=== PATIENT | female | born 1975 | race Caucasian/White ===

== ENCOUNTER 2019-03-15 10:35 | Outpatient (CLI) | payer BC, SELFPAY ==
[2019-03-15 13:35] LABS: ALT 28 U/L (12-78); AST 19 U/L (15-37); Albumin 3.6 g/dL (3.4-5.0); Alkaline Phosphatase 72 U/L (46-116); Anion Gap 10.2 mmol/L (3-11); BUN 12 mg/dL (7-18); Bilirubin, Total 0.4 mg/dL (0.2-1.0); CO2 26.8 mmol/L (21.0-32.0); CREATININE 0.89 mg/dL (0.55-1.02); Calcium 9.4 mg/dL (8.5-10.1); Chloride 101 mmol/L (98-107); Cholesterol 205 mg/dL (50-200); GGT 82 U/L (5-55); Glucose 105 mg/dL (70-100); HDL Cholesterol 58 mg/dL (40-60); LDL CHOLESTEROL 112 mg/dL (<100); Potassium 4.2 mmol/L (3.5-5.1); Sodium 138 mmol/L (136-145); Total Protein 6.9 g/dL (6.4-8.2); Triglyceride 201 mg/dL (30-150)
== END 2019-03-15 10:55 ==
PROVIDERS: PCP Family Medicine; Visit Provider Family Medicine
DX: Z00.00 Encounter for general adult medical examination without abnormal findings (principal); F41.0 Panic disorder [episodic paroxysmal anxiety]; Z13.220 Encounter for screening for lipoid disorders
CPT/HCPCS: 36415; 80053; 80061; 83721; 82977

== ENCOUNTER 2021-04-02 10:04 | Outpatient (REF) | payer BC, SELFPAY ==
--- NOTE | 2021-04-02 08:45 | PAPFT_PTH ---
PATIENT: Margarita Mcclure LOC: [facility] U#:[id number] AGE/SX: 45/F ROOM: RE04/02/[address]: Carmen Ferrer MD, DC : 1975 BED: DIS: 04/02/2021 SPEC #: [id number] RECD: 04/02/21 12:35 STATUS: OLGA LIDIA REFlavia #: [id number] RADHA: 04/02/21 08:[address]: Carmen Ferrer DEPT: [facility] Cytology RECD BY: Amarilis Saul Tissues: 1 - CX/ENDOCX FOR PAP SMEARS Procedures: PAP THIN PREP/UVM Screening HPV DNA PROBE Comments: [id number]
== END 2021-04-02 10:05 | disposition home or self-care (01) ==
LOC: LBN 10:04
PROVIDERS: PCP Family Medicine; Visit Provider Family Medicine
DX: Z12.4 Encounter for screening for malignant neoplasm of cervix (principal); Z11.51 Encounter for screening for human papillomavirus (HPV)
CPT/HCPCS: 88142; 87624

== ENCOUNTER 2021-10-03 00:53 | Outpatient (CLI) | payer BC, SELFPAY ==
--- NOTE | 2021-10-03 08:00 | ETT_ITS ---
APPROVED REPORT Exam: Exercise Treadmill Patient Location: Out-Patient Room/Bed: Stress Nurse: Mishel Fairbanks RN Ordering Provider:JAHAIRA CHOWDHURY, Contact Number: [phone] BMI: 25.95 Baseline Rhythm: Sinus Rhythm Comment: Minimal diffuse ST depressions Indications: SOB, hypertension, smoker Medical History Medical History: SOB, seborrheic keratuses, hypertension, anxiety, depression, smoker (current) Cardiac Medications: Amlodipine, metoprolol succinate, hydrochlorothiazide, venlafaxine Allergies: Metronidazole Cardiac Risk Factors: Hypertension, smoker (current) Previous Cardiac Procedures: None Pretest Chest Pain Characteristics: None Exercise History: Sedentary Physical Disabilities: None Lung Sounds: Clear to auscultation Heart Sounds: Regular Stress Test Details Test: Exercise stress testing was performed using a Brian protocol. Rest Stress HR Resting HR Supine: 85 bpm Max Heart Rate (APMHR): 173 bpm Resting HR Standin bpm Target HR (85% APMHR): 147 bpm Max HR Achieved: 176 bpm % of APMHR: 101 Recovery HR: 103 bpm HR response to stress: Normal HR response to stress Comment: Metoprolol succinate held for 48 hrs BP Resting BP Supine: 162/90 mmHg Resting BP Standin/90 mmHg Max BP: 190/92 mmHg Recovery BP: 168/88 mmHg BP response to stress: Normal blood pressure response to stress. ECG Resting ECG: Sinus Rhythm Ectopy: None Comment: Minimal diffuse ST depressions Stress ECG: Sinus Tachycardia ST Change: Horizontal ST depression, Downsloping ST depression Lead(s): II, III, aVF, V5, V6 Stage: [address] Deviation: 1.5 mm Arrhythmia: None Recovery ECG: Sinus Rhythm Recovery ST Change: Horizontal ST depression, Downsloping ST depression Lead(s): II, III, aVF, V5, V6 Recovery ST Deviation: 1 mm Recovery Arrhythmia: None Comment: ST depressions returning back to baseline of diffuse ST depressions Clinical Reason for Termination: Fatigue, Dyspnea Stress Symptoms: General Fatigue, Dyspnea, Chest pain (in recovery) Exercise duration: 9 min32 sec Highest Stage Reached: Stage 4: 4.2 mph at 16% grade. Exercise capacity: 11.03 METs Moreno Treadmill Score: 9.2 Rate Pressure Product: [id number] Stress ECG Conclusion 1. Resting electrocardiogram showed minor diffuse nondiagnostic ST abnormalities 2. Patient exercised on the Brian protocol and completed a workload of 11.03 METS 3. Normal heart rate and blood pressure response to exercise. The patient achieved greater than 100% of predicted heart rate for age 4. At peak exercise there was J-point depression with upsloping ST segments. In recovery the patient developed diffusely downsloping ST segments which lasted through minute 14 of recovery 5. There were no significant dysrhythmia 6. Electrocardiographically the test was equivocal due to resting ST-T abnormalities. Suggest repeat with imaging if clinically appropriate Moreno Treadmill Score is 9.2 which is Low risk. Stress Test Summary STAGE Time (mins) Speed (mph) Grade (%) HR BP SYMPTOMS METS Supine 85 162/90 Standing 94 162/90 BAILEY 2/10, SpO2 98% 1 3 1.7 10 128 174/92 Mild SOB, SpO2 97% 4.6 2 6 2.5 12 152 178/92 Moderate SOB, SpO2 97% 7 3 9 3.4 14 169 186/94 SpO2 97% 10.2 1 min recovery 169 188/94 Mild SOB, SpO2 98% 3 min recovery 128 190/92 BAILEY 4/10, SpO2 98% 6 min recovery 111 178/90 L Chest pain 2/10, SpO2 98% 9 min recovery 107 168/88 Symptoms improving, SpO2 97% 12 min recovery 104 Symptoms resolved, SpO2 97% 15 min recovery 103 SpO2 98%
== END 2021-10-03 01:13 ==
PROVIDERS: PCP Family Medicine; Visit Provider Family Medicine
DX: F17.200 Nicotine dependence, unspecified, uncomplicated (principal); I10 Essential (primary) hypertension; R06.02 Shortness of breath
CPT/HCPCS: 93017

== ENCOUNTER 2021-10-15 01:13 | Outpatient (CLI) | payer BC, SELFPAY ==
--- NOTE | 2021-10-15 07:30 | DI.NM_ITS ---
APPROVED REPORT Exam: Exercise Treadmill Patient Location: Out-Patient Room/Bed: Stress Nurse: Sara Newton RN Ordering Provider:JAHAIRA CHOWDHURY, Contact Number: [phone] BMI: 25.33 Baseline Rhythm: Sinus Rhythm Comment: diffuse ST depressions at baseline Indications: ABNORMAL STRESS ETT. Medical History Medical History: Anxiety, Depression, Smoker, HTN, Abnormal stress ECG w/ treadmill Cardiac Medications: Metoprolol succinate, Hydrochlorothiazide, Amlodipine Allergies: Metronidazole Cardiac Risk Factors: HTN, Smoking (current) Previous Cardiac Procedures: None Pretest Chest Pain Characteristics: No chest pain Exercise History: Sedentary Physical Disabilities: None Lung Sounds: Clear to auscultation Heart Sounds: Regular Stress Test Details Test: Exercise stress testing was performed using a Brian protocol. Nuclear Acquisition: Rest Tc-99m/Stress Tc-99m 1 day Rest Isotope: Tc-99m Sestamibi. Dose: 10.5 Date: 10/15/2021 Injection Time: 0930 Stress Isotope: Tc-99m Sestamibi. Dose: 32.0 Date: 10/15/2021 Injection Time: 1120 HR Resting HR Supine: 76 bpm Max Heart Rate (APMHR): 173.462426 bpm Resting HR Standin bpm Target HR (85% APMHR): 147.989564 bpm Max HR Achieved: 169 bpm % of APMHR: 97.69 Recovery HR: 102 bpm HR response to stress: Normal HR response to stress Comment: Prolonged recovery period d/t elevated HRs. Metoprolol succinate held for 48hrs prior to jose manuel t. BP Resting BP Supine: 152/90 mmHg Resting BP Standin/88 mmHg Max BP: 192/88 mmHg Recovery BP: 124/82 mmHg BP response to stress: Normal blood pressure response to stress. ECG Resting ECG: Sinus Rhythm Ectopy: None Stress ECG: Sinus Tachycardia ST Change: Horizontal/downsloping ST depressions Lead(s): inferior leads Stage: [address] Deviation: 2 mm Arrhythmia: rare PVC Recovery ECG: Sinus Tachycardia Recovery ST Change: Horizontal/downsloping ST depression Lead(s): inferior leads, V4, V5, V6 Recovery ST Deviation: 1 mm Recovery Arrhythmia: None Clinical Reason for Termination: Fatigue Stress Symptoms: General Fatigue, Dyspnea Exercise duration: 09 min42 sec Highest Stage Reached: Stage 4: 4.2 mph at 16% grade. Exercise capacity: 11.32 METs Moreno Treadmill Score: 9 Rate Pressure Product: [id number] Stress ECG Conclusion 1. Resting electrocardiogram showed left ventricular hypertrophy with mild diffuse ST depression 2. The patient exercised on the Brian protocol and completed a workload of 11.32 METS, stopping due t o fatigue and shortness of breath 3. Normal heart rate and blood pressure response to exercise. The patient achieved 97% of predicted heart rate for age 4. Electrocardiographically the test was equivocal for myocardial ischemia due to resting ST-T abnorm alities 5. There were no dysrhythmias Moreno Treadmill Score is 9 which is Low risk. Stress Test Summary STAGE Time (mins) Speed (mph) Grade (%) HR BP SYMPTOMS METS Supine 76 152/90 Standing 88 152/88 1 3 1.7 10 114 158/84 4.6 2 6 2.5 12 138 164/86 7 3 9 3.4 14 160 190/92 10.2 1 min recovery 162 192/88 3 min recovery 125 182/86 6 min recovery 111 144/76 9 min recovery 105 138/78 12 min recovery 104 130/82 15 min recovery 102 12/82 Patient does not endorse chest pain during exercise or in recovery period. MPI Conclusion Normal myocardial perfusion without evidence of ischemia or prior infarction EF is 77%, normal wall motion Radiologist Interpretation Radiologist Interpretation by: Andi Resendez MD Interpretation Date/Time: 10/15/2021 15:49:55
== END 2021-10-15 01:33 ==
PROVIDERS: PCP Family Medicine; Visit Provider Family Medicine
DX: R94.39 Abnormal result of other cardiovascular function study (principal); R94.31 Abnormal electrocardiogram [ECG] [EKG]; I10 Essential (primary) hypertension; F17.210 Nicotine dependence, cigarettes, uncomplicated
CPT/HCPCS: 78452; 93017

== ENCOUNTER 2021-11-14 12:39 | Outpatient (CLI) | payer BC, SELFPAY ==
--- NOTE | 2021-11-14 12:30 | RT.EKG_ITS ---
APPROVED REPORT Exam: Resting ECG Reason for Exam: abnormal test Patient Location: O HR:74 bpm ECG Measurements Heart Rate 74 AXIS NE 174 P 60 QRSd 84 QRS 45 QT 388 T -39 QTc 431 Conclusion Sinus rhythm...normal P axis, V-rate 50- 99 Ventricular premature complex...V complex w/ short R-R interval Diffuse nondiagnostic ST-T abnormalities
== END 2021-11-14 12:40 | disposition home or self-care (01) ==
LOC: DI.CARD 12:40
PROVIDERS: PCP Family Medicine; Visit Provider Internal Medicine Cardiovascular Disease
DX: R94.39 Abnormal result of other cardiovascular function study (principal)
CPT/HCPCS: 93010

== ENCOUNTER 2022-05-16 02:40 | Outpatient (CLI) | payer BC, SELFPAY ==
[2022-05-16 13:07] LABS: ALT 34 U/L (14-59); AST 20 U/L (15-37); Albumin 3.9 g/dL (3.4-5.0); Alkaline Phosphatase 76 U/L (46-116); Anion Gap 8.7 mmol/L (3-11); BUN 16 mg/dL (7-18); Bilirubin, Total 0.5 mg/dL (0.2-1.0); CO2 28.3 mmol/L (21.0-32.0); CREATININE 0.9 mg/dL (0.55-1.02); Calcium 9.1 mg/dL (8.5-10.1); Chloride 99 mmol/L (98-107); Glucose 115 mg/dL (74-106); Potassium 3.5 mmol/L (3.5-5.1); Sodium 136 mmol/L (136-145); Total Protein 7.3 g/dL (6.4-8.2)
== END 2022-05-16 02:41 | disposition home or self-care (01) ==
LOC: LOS 02:40
PROVIDERS: PCP Family Medicine; Visit Provider Family Medicine
DX: Z00.00 Encounter for general adult medical examination without abnormal findings (principal); I10 Essential (primary) hypertension
CPT/HCPCS: 36415; 80053

== ENCOUNTER 2023-03-12 09:55 | Outpatient (REF) | payer BC, SELFPAY ==
--- NOTE | 2023-03-12 08:30 | ENDOMET_PTH ---
PATIENT: Margarita Mcclure LOC: [facility] U#:[id number] AGE/SX: 47/F ROOM: RE03/12/[address]: Lory Skinner DO : 1975 BED: DIS: 03/12/2023 SPEC #: [id number] RECD: 03/12/23 12:34 STATUS: OLGA LIDIA REQ #: [id number] RADHA: 03/12/23 08:[address]: Lory Skinner DEPT: Surgical Specimen RECD BY: Radha Covington ENTERED: 03/12/23 12:35 SP TYPE: Endomet OTHR DR: Carmen Ferrer MD, DC Tissues: 1 - ENDOMETRIUM BX/CHRISTINA Procedures: GROSS AND MICRO LEVEL 4 Comments: [id number]
== END 2023-03-12 09:56 | disposition home or self-care (01) ==
LOC: LBN 09:55
PROVIDERS: PCP Family Medicine; Visit Provider Obstetrics & Gynecology
DX: N95.0 Postmenopausal bleeding (principal)
CPT/HCPCS: 88305

== ENCOUNTER 2023-06-23 03:52 | Outpatient (CLI) | payer BC, SELFPAY ==
[2023-06-23 11:41] LABS: Abs Immature Grans 0.01 10^3/uL (0.0-0.06); Absolute Eosinophil Count 0.17 10^3/uL (0.0-0.7); Absolute Lymphocyte Count 3.05 10^3/uL (1.2-3.4); Absolute Monocyte Count 0.39 10^3/uL (0.1-0.8); Absolute Neutrophil Count 4.87 10^3/uL (1.2-6.7); Basophils % 1.2; HGB 14.4 g/dL (11.2-15.7); Immature Grans % 0.1; Lymphocytes % 35.5; MCH 30.7 pg (27.0-33.0); MCHC 34.3 % (32.0-36.0); MCV 90 fL (80-95); MPV 9.5 fL (8.0-11.0); Monocytes % 4.5; Neutrophils % 56.7; Platelet Count 313 10^3/uL (130-400); RBC 4.69 10^6/uL (3.93-5.22); RDW 12.8 % (11.7-14.6); RDW-SD 42.2 fL; WBC 8.59 10^3/uL (4.4-10.8)
[2023-06-23 12:18] LABS: ALT 30 U/L (14-59); AST 20 U/L (15-37); Albumin 3.9 g/dL (3.4-5.0); Alkaline Phosphatase 98 U/L (46-116); Anion Gap 7.2 mmol/L (3-11); BUN 13 mg/dL (7-18); Bilirubin, Total 0.6 mg/dL (0.2-1.0); CO2 30.8 mmol/L (21.0-32.0); CREATININE 0.9 mg/dL (0.55-1.02); Calcium 9.2 mg/dL (8.5-10.1); Chloride 99 mmol/L (98-107); Estimated GFR 78.37 (mL/min/1.73m2); Glucose 136 mg/dL (74-106); Potassium 3.4 mmol/L (3.5-5.1); Sodium 137 mmol/L (136-145); Total Protein 7.5 g/dL (6.4-8.2)
== END 2023-06-23 03:53 | disposition home or self-care (01) ==
LOC: LBO 03:52
PROVIDERS: PCP Family Medicine; Visit Provider Obstetrics & Gynecology
DX: I10 Essential (primary) hypertension (principal); Z00.00 Encounter for general adult medical examination without abnormal findings; Z01.818 Encounter for other preprocedural examination
CPT/HCPCS: 36415; 80053; 86850; 86900; 86901; 85025

== ENCOUNTER 2023-06-24 06:07 | Day surgery (SDC) | payer BC, SELFPAY ==
[2023-06-24 06:29] VITALS: BP 117/94; PULSE 70; RESP 16; TEMP 36.4; O2SAT 97
[2023-06-24] MEDS: Lactated Ringers 1,000 ML 125 ML IV (06:59)
--- NOTE | 2023-06-24 07:01 | ANES.PREOP_ITS ---
General Info Date of Service Date Performed: 06/24/23 Height: 5 ft 5 in Weight: 71.1 kg Body Mass Index (BMI): 26.1 Surgical Procedure: Operation Date: 06/24/23 07:40 Proposed Procedure Side Surgeon p Dilation & Curettage with Hysteroscopy Lory Skinner DO Meds Allergies and Home Medications Allergies Allergy/AdvReac Type Severity Reaction Status Date / Time metronidazole Allergy Intermediate HIVES Verified 06/24/23 06:34 Home Medication Medication Instructions Recorded amlodipine 5 mg tablet 5 mg PO DAILY #90 tabs 02/17/23 hydrochlorothiazide 25 mg tablet 25 mg PO QAM #90 tabs 02/17/23 metoprolol succinate 100 mg 100 mg PO DAILY #90 tabs 02/17/23 tablet,extended release 24 hr clonazepam 1 mg tablet 1 mg PO BID PRN anxiety #135 06/03/23 tab-caps potassium chloride 10 mEq 10 meq PO DAILY #90 tabs 06/23/23 tablet,extended release(part/cryst) Current Visit Medications: Current Medications Generic Name Dose Route Start Last Admin Trade Name Fernanda PRN Reason Stop Dose Admin Ringer's Solution 1,000 mls @ 125 mls/hr 06/24/23 06:00 06/24/23 06:59 IV 07/23/23 23:59 125 mls/hr INFUSION ROBYN Administration IV Miscellaneous Supplies 1 each 06/24/23 06:00 Iv Access IV 07/23/23 23:59 DIRECTED ROBYN Sodium Chloride 0 ml 06/24/23 06:00 Normal Saline Flush 10 Ml Syr IV 07/23/23 23:59 PRN PRN Sodium Chloride 0 ml 06/24/23 06:00 Normal Saline 10 Ml Vial IJ 07/23/23 23:59 DIRECTED PRN Sterile Water 0 ml 06/24/23 06:00 Water,Injection,Sterile 10 Ml Vial IJ 07/23/23 23:59 DIRECTED PRN PFSH Active Problems Active Problems: Problem Status Onset Code Thickened endometrium R93.89 Post-menopausal bleeding N95.0 Annual physical exam Z00.00 Abnormal electrocardiogram R94.31 Abnormal stress ECG with treadmill R94.39 Shortness of breath R06.02 Seborrheic keratoses, inflamed L82.0 Menopausal symptoms N95.1 Hypertension I10 Knee pain, bilateral M25.561, M25.562 Annual physical exam Z00.00 Smoker F17.200 Panic attack F41.0 Depressive disorder F32.9 Anxiety F41.9 Alcohol intake above recommended sensible limits 11/21/13 Z72.89 Medical History Medical History Acute appendicitis w/appendectomy 08/12/12 Acute appendicitis Acute dermatitis 03/14/15 Acute dermatitis (03/14/15) Annual physical exam (01/17/16) ASCUS of cervix with negative high risk HPV (03/03/18) Surgical History Surgical History Appendectomy (08/12/12) Tobacco Smoking/Tobacco Use Status: Current-Occasional Tobacco Type: cigarettes Passive smoking exposure: Yes Alcohol Alcohol Intake: current Alcohol intake frequency: a few times a week Alcohol type: beer Substance Use Substance use: Rarely Substance use type: marijuana Prental History History 0 Para Hx # Term Pregnancies Multiple births Hx # Pregnancies Ectopic pregnancies AB induced Hx Number of Living Children AB spontaneous Vital Signs and Lab Results Vital Signs Most Recent Vital Signs in EMR: Most Recent Vital Signs Temp Pulse Resp BP Pulse Ox 36.4 C L 70 16 117/94 H 97 06/24/23 06:29 06/24/23 06:29 06/24/23 06:29 06/24/23 06:29 06/24/23 06:29 Point of Care Results Point of Care Results: POC- Test(urine) Negative 06/24/23 06:47 Lab Results Blood Type / Crossmatch: Patient ABO/Rh O Positive 06/23/23 Antibody Screen NEGATIVE 06/23/23 Complete Blood Count: White Blood Count 8.59 10^3/uL (4.4-10.8) 06/23/23 11:35 Red Blood Count 4.69 10^6/uL (3.93-5.22) 06/23/23 11:35 Hemoglobin 14.4 g/dL (11.2-15.7) 06/23/23 11:35 Hematocrit 42.0 % (36.0-46.0) 06/23/23 11:35 Platelet Count 313 10^3/uL (130-400) 06/23/23 11:35 Complete Metabolic Panel: Sodium 137 mmol/L (136-145) 06/23/23 11:35 Potassium 3.4 mmol/L (3.5-5.1) L 06/23/23 11:35 Chloride 99 mmol/L (98-107) 06/23/23 11:35 Carbon Dioxide 30.8 mmol/L (21.0-32.0) 06/23/23 11:35 BUN 13 mg/dL (7-18) 06/23/23 11:35 Creatinine 0.9 mg/dL (0.55-1.02) 06/23/23 11:35 Est GFR (CKD-EPI 2020) 78.37 (mL/min/1.73m2) 06/23/23 11:35 Calcium 9.2 mg/dL (8.5-10.1) 06/23/23 11:35 Albumin 3.9 g/dL (3.4-5.0) 06/23/23 11:35 Glucose 136 mg/dL (74-106) H 06/23/23 11:35 Liver Function Panel: Alanine Aminotransferase (ALT/SGPT) 30 U/L (14-59) 06/23/23 11: 35 Aspartate Amino Transf (AST/SGOT) 20 U/L (15-37) 06/23/23 11:35 Coagulation Panel: No Data to Display Cardiac Panel: No Data to Display Arterial Blood Gas: No Data to Display Venous Blood Gas: No Data to Display Pancreas Panel: No Data to Display Thyroid Panel: No Data to Display Infectious Disease: No Data to Display Blood Cultures: No Data to Display Toxicology Panel: No Data to Display Panel: No Data to Display Imaging and Studies Imaging and Studies Study information below may be from another EMR and interpreted by another provider. Please see original notes in EMR for more complete details. EKG Summary: 11/14/2021: Conclusion Sinus rhythm...normal P axis, V-rate 50- 99 Ventricular premature complex...V complex w/ short R-R interval MPI Conclusion Normal myocardial perfusion without evidence of ischemia or prior infarction EF is 77%, normal wall motion Stress Test Summary: 10/15/2021: Stress ECG Conclusion 1. Resting electrocardiogram showed left ventricular hypertrophy with mild diffuse ST depression 2. The patient exercised on the Brian protocol and completed a workload of 11.32 METS, stopping due to fatigue and shortness of breath 3. Normal heart rate and blood pressure response to exercise. The patient achieved 97% of predicted heart rate for age 4. Electrocardiographically the test was equivocal for myocardial ischemia due to resting ST-T abnormalities 5. There were no dysrhythmias Moreno Treadmill Score is 9 which is Low risk. Anesthesia Assessment and Plan Anesthesia History Personal History: No History of Anesthesia Complications Family History: No Family History of Anesthesia Complications Exercise Tolerance Exercise Tolerance: Metabolic Equivalents>4 Cardiac & Pulmonary Exam Cardiac Exam: Normal S1/S2 Heart Sounds Pulmonary Exam: Clear Bilateral Breath Sounds Implantable Cardiac Device Does patient have a Pacemaker or an ICD?: No Airway Exam Known Difficult Airway: No Mallampati Class: 2 Mouth Opening: Normal (> 3cm) Thyromental Distance: Greater than 3 cm Neck Range of Motion: Full ROM Neck Circumference: Normal Teeth Condition: Normal Dentition ASA Classification ASA Score: ASA 2 Emergency Case?: No NPO Status NPO Status: NPO Clears >2 hours, Solids >8 hours Status Status: Negative HCG Anesthesia Plan Resuscitation Status: Full Code Anesthesia Technique: General Anesthesia Airway Planned: Natural Airway Monitors Used: Standard Monitors
[2023-06-24 07:05] VITALS: BMI 26.1
--- NOTE | 2023-06-24 07:57 | ENDO_PTH ---
PATIENT: Margarita Mcclure LOC: [facility] U#:[id number] AGE/SX: 47/F ROOM: RE06/24/[address]: Lory Skinner DO : 1975 BED: DIS: 06/24/2023 SPEC #: [id number] RECD: 06/24/23 12:46 STATUS: OLGA LIDIA [facility] #: [id number] RADHA: 06/24/23 07:[address]: Lory Skinner DEPT: Surgical Specimen RECD BY: Radha Covington ENTERED: 06/24/23 12:51 SP TYPE: Endo OTHR DR: Carmen Ferrer MD, DC Tissues: 1 - ENDOCERVICAL BX/CURRETTE 2 - ENDOMETRIUM BX/CURRETTE 3 - ENDOMETRIUM BX/CURRETTE Procedures: GROSS AND MICRO LEVEL 4 Comments: [id number]
--- NOTE | 2023-06-24 08:10 | W.PM.OP ---
Date of service: 06/24/23 Time of Service: 08:10 Operative Note Operative Note DATE OF PROCEDURE: 06/24/23 PRE-OP DIAGNOSIS: Postmenopausal bleeding, thickened endometrium POST-OP DIAGNOSIS: same Endometrial polyp PROCEDURE: Hysteroscopy, dilation and curettage, MyoSure removal of endometrial polyp SURGEON: Lory Skinner ANESTHESIA TYPE: General:No Airway Refer to Anesthesia Record ESTIMATED BLOOD LOSS: 5 PATHOLOGY: other (1. Endocervical curetting 2. Endometrial curetting 3. Endometrial polyp) COMPLICATIONS: None Patient was transported to: same day Patient's condition: stable Indications: Postmenopausal bleeding, thickened endometrium, failed endometrial biopsy in the office Findings: Smooth regular endometrial cavity, smooth regular endocervical cavity, 3 mm fundal polyp, removed. Procedure Description: After full informed consent was obtained, patient was taken the operating suite with an IV running. She was placed in the dorsal supine position and anesthesia administered. She was then placed in the modified dorsolithotomy position and prepped and draped in the usual sterile fashion. No antibiotic prophylaxis was necessary. Pneumatic compression stockings were placed for DVT prophylaxis. Exam under anesthesia revealed a uterus that was midline, mobile, and small. Speculum was inserted into the vaginal vault and a single-tooth tenaculum used to grasp the anterior lip of the cervix. Cervical os dilated to the point that a 4 mm hysteroscope could be passed with ease. With normal saline instillation the endometrial cavity was inspected. The endocervical canal, and endometrium was smooth and regular. Tubal ostia were visualized bilaterally. There was a 3 mm fundal polyp which was removed with the MyoSure device and noted to be hemostatic. At this point, with a total fluid deficit of 35 mL the hysteroscope portion of the procedure was terminated. A gentle endocervical curettage was performed, followed by a gentle endometrial curettage. Speculum was then removed as was the single-tooth tenaculum. Tenaculum sites had been hemostatic. Patient was returned to the dorsal supine position and awoke from anesthesia without difficulty. She was taken back to the same-day surgical area in stable condition. Complications: None apparent Findings: Smooth regular endocervix and endometrium. Small fundal polyp, removed Pathology: 1. Endocervical curettage 2. Endometrial curettage 3. Endometrial polyp Complications: None apparent Fluids: Crystalloid per anesthesia and 35 cc of normal saline during hysteroscope.
[2023-06-24 08:11] VITALS: BP 115/92; PULSE 74; RESP 16; TEMP 36; O2SAT 96
--- NOTE | 2023-06-24 08:33 | W.ANESPOSTOP ---
Postoperative Evaluation Date, Time and Location Date Performed: 06/24/23 Time Performed: 08:33 Patient Location: Day Surgery Unit Vital Signs Most Recent Imported Vital Signs: Most Recent Vital Signs Temp Pulse Resp BP Pulse Ox 36 C L 74 16 115/92 H 96 06/24/23 08:11 06/24/23 08:11 06/24/23 08:11 06/24/23 08:11 06/24/23 08:11 Pain Score Most Recent Pain Score: Most Recent Pain Score Pain Level 0 06/24/23 08:11 Assessment Mental Status: Awake (Alert & Oriented to Patient Baseline) Airway and Respiratory Function: Patent airway with normal (patient baseline) respiratory exam Cardiovascular Function: Hemodynamically Stable Hydration Status: Adequately Hydrated Nausea & Vomiting: No Nausea or Vomiting Pain: Pt. Denies Any Pain Peripheral Nerve Block: Patient did not receive a nerve block
[2023-06-24 08:45] VITALS: BP 132/98; PULSE 62; RESP 16; TEMP 36.4; O2SAT 98
== END 2023-06-24 09:18 | disposition home or self-care (01) ==
PROVIDERS: PCP Family Medicine; Visit Provider Obstetrics & Gynecology
PROC: 0UDB8ZZ Extraction of Endometrium, Via Natural or Artificial Opening Endoscopic (ICD-10-PCS; CPT 58558; principal; 2023-06-24 07:30)
DX: N84.0 Polyp of corpus uteri (principal); N95.0 Postmenopausal bleeding
CPT/HCPCS: 58558; 81025; 88305; J1885; J2001; J2250; J2405; J3010

== ENCOUNTER 2024-07-06 02:52 | Outpatient (CLI) | payer BC, SELFPAY ==
[2024-07-06 12:53] LABS: ALT 41 U/L (14-59); AST 21 U/L (15-37); Albumin 3.9 g/dL (3.4-5.0); Alkaline Phosphatase 89 U/L (46-116); Anion Gap 8.7 mmol/L (3-11); BUN 11 mg/dL (7-18); Bilirubin, Total 0.51 mg/dL (0.2-1.0); CO2 31.3 mmol/L (21.0-32.0); CREATININE 0.9 mg/dL (0.55-1.02); Calcium 9.2 mg/dL (8.5-10.1); Chloride 98 mmol/L (98-107); Estimated GFR 77.88 (mL/min/1.73m2); Glucose 108 mg/dL (74-106); Potassium 3.8 mmol/L (3.5-5.1); Sodium 138 mmol/L (136-145); Total Protein 7.5 g/dL (6.4-8.2)
== END 2024-07-06 02:53 | disposition home or self-care (01) ==
LOC: LOS 02:52
PROVIDERS: PCP Family Medicine; Visit Provider Family Medicine
DX: Z00.00 Encounter for general adult medical examination without abnormal findings (principal)
CPT/HCPCS: 36415; 80053

== ENCOUNTER 2024-09-12 12:38 | Outpatient (REF) | payer BC, SELFPAY ==
--- NOTE | 2024-09-12 08:30 | PAPFT_PTH ---
PATIENT: Margarita Mcclure LOC: [facility] U#:[id number] AGE/SX: 48/F ROOM: RE09/12/[address]: Carmen Ferrer MD, DC : 1975 BED: DIS: 09/12/2024 SPEC #: [id number] RECD: 09/12/24 13:27 STATUS: OLGA LIDIA REFlavia #: [id number] RADHA: 09/12/24 08:[address]: Carmen Ferrer DEPT: COUNT INCLUDES [facility] Cytology RECD BY: Radha Covington Tissues: 1 - CX/ENDOCX FOR PAP SMEARS Procedures: PAP THIN PREP/UVM Screening HPV DNA PROBE Comments: [id number] (HPV 16 & 18/45)
== END 2024-09-12 12:39 | disposition home or self-care (01) ==
LOC: LBN 12:38
PROVIDERS: PCP Family Medicine; Visit Provider Family Medicine
DX: Z11.59 Encounter for screening for other viral diseases (principal); Z00.00 Encounter for general adult medical examination without abnormal findings
CPT/HCPCS: 88142; 87624

== ENCOUNTER 2025-08-29 03:19 | Outpatient (CLI) | payer BC, SELFPAY ==
[2025-08-29 12:33] LABS: ALT 26 U/L (14-59); AST 15 U/L (15-37); Albumin 3.9 g/dL (3.4-5.0); Alkaline Phosphatase 72 U/L (46-116); Anion Gap 11.0 mmol/L (3-11); BUN 13 mg/dL (7-18); Bilirubin, Total 0.7 mg/dL (0.2-1.0); CO2 29.0 mmol/L (21.0-32.0); Calcium 9.5 mg/dL (8.5-10.1); Chloride 99 mmol/L (98-107); Estimated GFR 89.15 (mL/min/1.73m2); Glucose 115 mg/dL (74-106); Potassium 4.1 mmol/L (3.5-5.1); Sodium 139 mmol/L (136-145); Total Protein 7.2 g/dL (6.4-8.2)
[2025-08-29 20:45] LABS: Hepatitis C Ab w Rflx HCV PCR Negative (Negative)
== END 2025-08-29 03:20 | disposition home or self-care (01) ==
LOC: LOS 03:20
PROVIDERS: PCP Family Medicine; Visit Provider Family Medicine
DX: I10 Essential (primary) hypertension (principal); Z11.59 Encounter for screening for other viral diseases
CPT/HCPCS: 36415; 80053; 86803

== ENCOUNTER → 2025-10-10 01:38 | Outpatient (CLI) | payer BC, SELFPAY ==
--- NOTE | 2025-10-10 06:00 | DI.MAMMO_ITS ---
Exam(s) MAMMO SCREENING EXAM: MAMMO SCREENING CLINICAL HISTORY: screening,z12.39 TECHNIQUE: Bilateral full field digital CC and MLO mammographic images were obtained with 3D tomosynthesis and utilizing computer aided detection (CAD). COMPARISON: This is a baseline examination. There are no priors for comparison. FINDINGS: Masses/Architectural Distortion: There is a well-circumscribed nodule in the upper outer quadrant of the right breast measuring 7 mm in diameter. It lies 8 cm from the nipple. There is an enlarged lymph nodes seen in the right axilla. Microcalcifications: No suspicious pleomorphic-type are seen. Skin Thickening/Nipple Retraction: None. IMPRESSION: 1. 7 mm nodule in the upper outer quadrant of the right breast and enlarged right axillary lymph node. 2. Further evaluation with spot compression views is requested. Ultrasound should be obtained at the same time. BI-RADS Category 0 - Incomplete: Need additional imaging evaluation Breast Density - Category C - The breast are heterogeneously dense, which may obscure small masses. Breast density Category C or D implies that the patient has dense breast tissue. Dense breast tissue can make it harder to find cancer on a mammogram. Dense breast tissue is also associated with an increased risk of breast cancer. This information about the result of the mammogram report was provided to the patient to raise their awareness. Use this report when you speak with the patient about their risks for breast cancer, which includes their family history. At that time, you may recommend additional screening tests (Ultrasound or MRI) as these tests may add significant information. A negative radiographic report should not delay biopsy if a dominant or clinically suspicious mass is present. Up to ten percent of cancers are not identified on mammography. A negative report may reinforce clinical impression. Adenosis and dense breasts may obscure an underlying neoplasm. False positive reports average 6 to 10%. Patient will receive a letter notifying them of these results.
== END ==
LOC: DI 01:39
PROVIDERS: PCP Family Medicine; Visit Provider Family Medicine
DX: Z12.31 Encounter for screening mammogram for malignant neoplasm of breast (principal); N63.11 Unspecified lump in the right breast, upper outer quadrant
CPT/HCPCS: 77063; 77067

== ENCOUNTER → 2025-10-23 00:32 | Outpatient (CLI) | payer BC, SELFPAY ==
--- NOTE | 2025-10-23 10:00 | DI.US_ITS ---
Exam(s) MG MAMMO SCREEN CALL BACK UNI US BREAST RT LIMITED EXAM: MG MAMMO SCREEN CALL BACK UNI CLINICAL HISTORY: 7MM NODULE UPPER OUTER QUAD RT BREAST ENLARGED AXILLARY LYMPH NODE R92.8. TECHNIQUE: Craniocaudal and mediolateral oblique spot compression digital Mammography views of the rightbreast with Tomosynthesis and right breast ultrasound. COMPARISON: MG MG MAMMO SCREENING from 10/10/2025 US US BREAST RT LIMITED from 10/23/2025 FINDINGS: Mammography/Tomosynthesis: Masses: Circumscribed ovoid nodule in the posterior upper outer quadrant has the appearance of an intramammary lymph node. Architectural Distortion: None seen. Microcalcifictions: No suspicious pleomorphic-type are seen. Skin Thickening/Nipple Retraction: None. Axilla: Spot compression views also performed of the axilla and shows a large but otherwise normal appearing axillary lymph node. Right breast US: Echotexture: Normal appearance of the glandular tissue. Shadowing: No suspicious foci. Cyst: None. Solid lesions: None seen. The nodule in question has the appearance of the intramammary lymph node and measures 4 x 4 x 2 millimeters at the 10 o'clock position, 6 cm from the nipple. Ductal dilation: None. Axilla: 3.2 x 1.0 x 0.9 centimeter axillary lymph node with more normal ultrasound appearance. No abnormal vascularity. IMPRESSION: 1. No evidence of malignancy is noted. 2. Unless there is more urgent need, follow-up screening mammography is recommended, as per [employer] [place] [employer] guidelines. 3. The findings were discussed with the patient on the date of the examination. BI-RADS Category 2 - Benign Findings Breast Density - Category B - There are scattered areas of fibroglandular density. Breast density Category C or D implies that the patient has dense breast tissue. Dense breast tissue can make it harder to find cancer on a mammogram. Dense breast tissue is also associated with an increased risk of breast cancer. This information about the result of the mammogram report was provided to the patient to raise their awareness. Use this report when you speak with the patient about their risks for breast cancer, which includes their family history. At that time, you may recommend additional screening tests (Ultrasound or MRI) as these tests may add significant information. A negative radiographic report should not delay biopsy if a dominant or clinically suspicious mass is present. Up to ten percent of cancers are not identified on mammography. A negative report may reinforce clinical impression. Adenosis and dense breasts may obscure an underlying neoplasm. False positive reports average 6 to 10%. Patient will receive a letter notifying them of these results.
== END ==
LOC: DI 00:33
PROVIDERS: PCP Family Medicine; Visit Provider Family Medicine
DX: Z12.31 Encounter for screening mammogram for malignant neoplasm of breast (principal)
CPT/HCPCS: 76642; 77063; 77067